=== PATIENT | male | born 1955 | race African-American/Black ===

== ENCOUNTER → 2018-05-18 | Outpatient (CLI) | payer OTHER, MEDICARE ==
--- NOTE | 2018-05-18 10:23 | CARD ---
MR#: [id number] Date of Study: 05/18/2018 Ordering Physician: LAZARA PATEL, Referring Physician: LAZARA PATEL, Tech: Simona Richard RDCS APPROVED REPORT EXAM: Two-dimensional and M-mode echocardiogram with Doppler and color Doppler. Other Information Quality : Good Rhythm : Atrial Fibrillation/Flutter INDICATION Murmur RISK FACTORS Obesity 2D DIMENSIONS RVDd2.8 (2.9-3.5cm)Left Atrium(2D)4.0 (1.6-4.0cm) IVSd1.2 (0.7-1.1cm)Aortic Root(2D)3.1 (2.0-3.7cm) LVDd4.8 (3.9-5.9cm)LVOT Diameter2.1 (1.8-2.4cm) PWd1.5 (0.7-1.1cm)LVDs3.5 (2.5-4.0cm) FS (%) 27.5 %SV58.1 ml LVEF(%)53.3 (>50%) Aortic Valve AoV Peak Jaiden.189.3cm/sAoV VTI34.0cm AO Peak GR.14.3mmHgLVOT Peak Jaiden.117.2cm/s AO Mean GR.9mmHgAVA (VMAX)2.23cm2 PEDRITO (VTI)2.50cm2 Mitral Valve MV E Iurwebvc900.1cm/sMV DECEL WTYE266ph MV A Velocity0.2cm/sE/A Iirzk845.5 Pulmonary Vein S1 Uzmxmckz67.5cm/sD2 Vuztvids37.7cm/s LEFT VENTRICLE The left ventricle is normal size. There is mild concentric left ventricular hypertrophy. Left ventri sammy systolic function is normal. The Ejection Fraction is 55-60%. There is normal LV segmental wall m otion. RIGHT VENTRICLE The right ventricle is normal size. The right ventricular systolic function is normal. ATRIA The left atrium is mildly dilated. The right atrium is mildly dilated. The interatrial septum is inta ct with no evidence for an atrial septal defect or patent foramen ovale as noted on 2-D or Doppler im aging. AORTIC VALVE The aortic valve is moderately thickened but opens well. Doppler and Color Flow revealed trace aortic regurgitation. Calculated aortic valve area is 2.5 cm2 with maximum pressure gradient of 14 mmHg and mean pressure gradient of 9 mmHg. MITRAL VALVE The mitral valve is calcified but opens well. There is no evidence of mitral valve prolapse. There is no mitral valve stenosis. Doppler and Color-flow revealed trace mitral regurgitation. TRICUSPID VALVE The tricuspid valve is normal in structure and function. Doppler and Color Flow revealed no tricuspid valve regurgitation noted. There is no tricuspid valve stenosis. PULMONIC VALVE The pulmonic valve is not well visualized. Doppler and Color Flow revealed trace to mild pulmonic michelle vular regurgitation. There is no pulmonic valvular stenosis. GREAT VESSELS The aortic root is normal in size. The ascending aorta is normal in size. The IVC is normal in size a nd collapses >50% with inspiration. PERICARDIAL EFFUSION There is no evidence of significant pericardial effusion. Critical Notification Critical Value: No <Conclusion> Left ventricle systolic function is normal. The Ejection Fraction is 55-60%. There is normal LV segmental wall motion. Doppler and Color-flow revealed trace mitral regurgitation. There is no evidence of significant pericardial effusion. Signed by : Yinka Haile, Electronically Approved : 05/18/2018 10:22:56
== END | disposition home or self-care (01) ==
LOC: ECHO 08:58
PROVIDERS: ATTEND Internal Medicine Cardiovascular Disease
DX: R01.1 Cardiac murmur, unspecified (principal); I51.7 Cardiomegaly; E66.9 Obesity, unspecified
CPT/HCPCS: 93306

== ENCOUNTER → 2018-08-31 | Outpatient (CLI) | payer OTHER, MEDICARE ==
--- NOTE | 2018-08-31 11:39 | RAD ---
Examination: CT chest without contrast HISTORY: History of cough COMPARISON: None available Technique: Axial CT images of the chest were performed without contrast. Coronal and sagittal reformats are performed Exposure: One or more of the following individualized dose reduction techniques were utilized for this examination: 1. Automated exposure control 2. Adjustment of the mA and/or kV according to patient size 3. Use of iterative reconstruction technique FINDINGS: The central airways are patent. Mild cardiomegaly. Coronary artery calcifications identified. Moderate aortic atherosclerosis. No radiologically significant mediastinal lymphadenopathy is identified. Linear airspace opacity identified in the right lower lobe lung likely atelectasis or infiltrate. Calcified granuloma identified in the right lower lobe of the lung. Minimal atelectasis left lung base. There is a 4 mm nodule identified in the right middle lobe of the lung. The visualized noncontrasted liver, spleen grossly appears unremarkable. Mild prominent adrenal glands. Mild degenerative changes thoracic spine. IMPRESSION: 1. Mild linear right lung base airspace opacities likely atelectasis or infiltrate. Minimal left lung base linear atelectasis. 2. A 4 mm nodule identified in the right middle lobe of the lung. Follow-up per Fleischner Society guidelines. Follow-up CT in 6-12 months. 3. . Coronary artery calcifications. 4. Mild prominent appearing left adrenal gland, nonspecific. Electronically signed by: Al Tabares MD (08/31/2018 11:35 AM) [id number]
== END | disposition home or self-care (01) ==
LOC: CT 10:11
PROVIDERS: ATTEND Family Medicine
DX: J98.11 Atelectasis (principal); I25.10 Atherosclerotic heart disease of native coronary artery without angina pectoris; R91.1 Solitary pulmonary nodule
CPT/HCPCS: 71250

== ENCOUNTER 2019-05-25 12:02 | Day surgery (SDC) | payer OTHER, MEDICARE ==
[~2019-05-25 12:02] MED LIST: APIX5TAB PO; BENZOCAINE ONE 20% MUCOSAL SPRAY. MM; BUDE10.2 IH; ERGO500027 PO; FLEC100T PO; GABA300C18 PO; GLIP2.5T4 PO; HYDROmorphone 2 MG/ML VIAL IV PRN; IV RINGERS,LACTATED 1000ML 1,000 ML IV SCH; LIDOCAINE 1% PF 2 ML VIAL. ID PRN; LIDOCAINE 2% TOPICAL JELLY 5GM TUBE. TP ONE; LIDOCAINE 2% VISCOUS 15 ML SOLUTION. SWSW ONE; LISI1TAB20 PO; METF500T16 PO; METO-239 PO; MORPHINE SULFATE 2 MG/ML VIAL. IV PRN; OXYC1TAB22 PO; PROCHLORPERAZINE 10 MG/2 ML VIAL. IV PRN; fentaNYL PF VIAL 100 MCG/2 ML VIAL IV PRN
--- NOTE | 2019-05-25 12:43 | EKG ---
[facility] [address] [place] [address] Test Date: 2019-05-25 Test Time: 12:45:47 Pat Name: ASHLEY FERNANDEZ Department: Room: Gender: M Case Hardener: GARETH : 1955 Requested By: LAZARA PATEL Order Number: [id number] Reading MD: Measurements Intervals [place] Rate: 68 P: 90 NC: 134 QRS: -62 QRSD: 132 T: 52 QT: 420 QTc: 452 Interpretive Statements SINUS RHYTHM ABNORMAL LEFT AXIS DEVIATION LEFT ANTERIOR FASCICULAR BLOCK NON SPECIFIC INTRAVENTRICULAR BLOCK ABNORMAL ECG RI6.01 No previous ECG available for comparison
[2019-05-25] MEDS ORDERED: INSULIN LISPRO 100 UNIT/ML 3ML VIAL for OP,RR ONLY. SQ PRN (13:00)
[2019-05-25] MEDS ORDERED: IV NORMAL SALINE 1000ML BAG 1,000 ML IV SCH (13:15)
[2019-05-25] MEDS ORDERED: PROPOFOL 40 ML IV ONE (13:19)
[2019-05-25 14:00] LABS: HEMATOCRIT 43.5 % (39.0-53.0); HEMOGLOBIN 14.3 g/dL (13.0-17.5); RED BLOOD COUNT 5.36 x10^6/uL (4.30-5.70); RED CELL DISTRIBUTION WIDTH 15.8 % (11.5-14.5); WHITE BLOOD COUNT 9.6 x10^3/uL (4.0-11.0)
[2019-05-25 14:20] VITALS: BP 134/106
[2019-05-25 14:27] LABS: CALCIUM 9.3 mg/dL (8.5-10.1); CREATININE 1.1 mg/dL (0.7-1.3); GFR 81.3; POTASSIUM 3.9 mmol/L (3.5-5.1)
--- NOTE | 2019-05-25 16:54 | CARD ---
MR#: [id number] Date of Study: 05/25/2019 Ordering Physician: JORDON LIU, Referring Physician: JORDON LIU Tech: Lesa Mahoney RDCS APPROVED REPORT EXAM: Two-dimensional and M-mode echocardiogram with Doppler and color Doppler. INDICATION Atrial Fibrillation Reason For Test : Rule out Intracardiac Thrombus. PROCEDURE After obtaining informed consent, patient underwent transesophageal echo in the PACU. Type of Sedation : General Anesthesia Sedation was administered by General Anesthesia. Sedation was achieved with Propofol 330mg intravenously. Transesophageal probe was inserted and advanced into esophagus by Jordon Liu MD. The FLORENTIN was performed without complications. Throughout the procedure, the blood pressure, pulse oximetry, cardiac rhythm, and rate were monitored . LEFT VENTRICLE The left ventricle is normal size. There is borderline to mild concentric left ventricular hypertroph y. The left ventricular systolic function is normal and the ejection fraction is within normal range. The Ejection Fraction is 55-60%. There is normal LV segmental wall motion. No left ventricle thrombu s noted on this study. RIGHT VENTRICLE The right ventricle is normal size. There is normal right ventricular wall thickness. The right ventr icular systolic function is normal. ATRIA The left atrium is mildly dilated. The right atrium is mildly dilated. The interatrial septum is inta ct with no evidence for an atrial septal defect or patent foramen ovale as noted on 2-D or Doppler im aging. There is no thrombus noted in the left atrial appendage. AORTIC VALVE The aortic valve is mildly calcified. The aortic valve is trileaflet. Doppler and Color Flow revealed no significant aortic regurgitation. There is no significant aortic valvular stenosis. There is no a ortic valvular vegetation. MITRAL VALVE The mitral valve is thickened but opens well. There is no evidence of mitral valve prolapse. There is no mitral valve stenosis. Doppler and Color-flow revealed trace to mild mitral regurgitation. TRICUSPID VALVE The tricuspid valve is normal in structure and function. Doppler and Color Flow revealed trace tricus pid regurgitation. There is no tricuspid valve prolapse or vegetation. There is no tricuspid valve st enosis. PULMONIC VALVE The pulmonary valve is normal in structure and function. Doppler and Color Flow revealed no pulmonic valvular regurgitation. There is no pulmonic valvular stenosis. GREAT VESSELS The aortic root is normal in size. The ascending aorta is normal in size. Critical Notification Critical Value: No <Conclusion> The left ventricle is normal size. The left ventricular systolic function is normal and the ejection fraction is within normal range. The Ejection Fraction is 55-60%. There is borderline to mild concentric left ventricular hypertrophy. The interatrial septum is intact with no evidence for an atrial septal defect or patent foramen ovale as noted on 2-D or Doppler imaging. There is no thrombus noted in the left atrial appendage. Doppler and Color Flow revealed no significant aortic regurgitation. There is no significant aortic valvular stenosis. Doppler and Color-flow revealed trace to mild mitral regurgitation. Doppler and Color Flow revealed trace tricuspid regurgitation. Signed by : Jordon Liu MD Electronically Approved : 05/25/2019 16:54:09
== END 2019-05-25 14:35 | disposition home or self-care (01) ==
LOC: SURG 12:02
PROVIDERS: ATTEND Internal Medicine Cardiovascular Disease
DX: I08.1 Rheumatic disorders of both mitral and tricuspid valves (principal); I48.0 Paroxysmal atrial fibrillation; I10 Essential (primary) hypertension; E78.5 Hyperlipidemia, unspecified; E11.9 Type 2 diabetes mellitus without complications; Z79.899 Other long term (current) drug therapy; Z98.890 Other specified postprocedural states; Z96.659 Presence of unspecified artificial knee joint; Z88.1 Allergy status to other antibiotic agents
CPT/HCPCS: 36415; 80048; 85027; 93005; 93312; 93325; J2704

== ENCOUNTER → 2019-10-03 | Outpatient (CLI) | payer OTHER, MEDICARE ==
[~2019-10-03] MED LIST changes: -BENZOCAINE ONE 20% MUCOSAL SPRAY. MM; -HYDROmorphone 2 MG/ML VIAL IV PRN; -IV RINGERS,LACTATED 1000ML 1,000 ML IV SCH; -LIDOCAINE 1% PF 2 ML VIAL. ID PRN; -LIDOCAINE 2% TOPICAL JELLY 5GM TUBE. TP ONE; -LIDOCAINE 2% VISCOUS 15 ML SOLUTION. SWSW ONE; -MORPHINE SULFATE 2 MG/ML VIAL. IV PRN; -PROCHLORPERAZINE 10 MG/2 ML VIAL. IV PRN; -fentaNYL PF VIAL 100 MCG/2 ML VIAL IV PRN
--- NOTE | 2019-10-03 13:29 | RAD ---
CT of the chest without contrast 10/03/2019 INDICATION: Lung nodule COMPARISON STUDY: CT without contrast August 31, 2018 TECHNIQUE: Multidetector CT imaging of the chest was performed without contrast FINDINGS: Heart size is normal. No pericardial effusion is identified. No pathologically enlarged mediastinal adenopathy is seen. Dense coronary calcification is noted. Aortic arch vessel calcification also seen. Findings are unchanged. There is no pneumothorax, pleural effusion, or acute focal consolidative infiltrate identified. There is a calcified granuloma noted in the right lower lobe. Approximately 3-4 mm subpleural nodular opacity in the right middle lobe is mildly less prominent in the interim. Scattered 1 to 2 mm subpleural opacities are seen throughout the bilateral lungs. The appearance is stable from prior study Limited visualization of the upper abdomen demonstrates no acute abnormality. Small hypodensity in the left liver is stable, likely benign. Superior mesenteric artery noted. Mild fullness of the adrenal glands unchanged. IMPRESSION: 1. Stable to slightly smaller approximately 3 to 4 mm nodule right middle lobe. Scattered 1 to 2 mm subpleural nodular opacities are similar. No new or growing lung nodules are identified. Recommend CT chest in one year to ensure two-year stability. 2. No other acute cardiopulmonary process. CT DOSING PQRS STATEMENT: One or more of the following individualized dose reduction techniques were utilized for this examination: 1. Automated exposure control 2. Adjustment of the mA and/or kV according to patient size 3. Use of iterative reconstruction technique Electronically signed by: Walker Kumar MD (10/03/2019 1:26 PM) [facility]
== END | disposition home or self-care (01) ==
LOC: CT 09:51
PROVIDERS: ATTEND Internal Medicine Pulmonary Disease
DX: R91.1 Solitary pulmonary nodule (principal); I25.10 Atherosclerotic heart disease of native coronary artery without angina pectoris
CPT/HCPCS: 71250

== ENCOUNTER → 2020-11-08 | Outpatient (CLI) | payer OTHER, MEDICARE ==
--- NOTE | 2020-11-08 16:23 | RAD ---
MR#: [id number] Date of Study: 11/08/2020 Ordering Physician: LAZARA PATEL, Referring Physician: LAZARA PATEL, Tech: APPROVED REPORT Patient Location : OUT-PATIENT Indications Lower Extremity Edema : Findings Grayscale images of the bilateral saphenofemoral junctions are grossly unremarkable. The right great saphenous vein measures 5.6 mm and the left great saphenous vein measures 5.3 mm. The bilateral gre ater saphenous veins did not show any evidence of reflux. The bilateral lesser saphenous veins also did not show any evidence of reflux. Critical Notification Critical Value: No <Conclusion> 1. No evidence of reflux in the bilateral greater and lesser saphenous veins Signed by : Derrick Pena, Electronically Approved : 11/08/2020 16:23:30
--- NOTE | 2020-11-08 16:25 | RAD ---
MR#: [id number] Date of Study: 11/08/2020 Ordering Physician: LAZARA PATEL, Referring Physician: LAZARA PATEL, Tech: APPROVED REPORT Bilateral Lower Extremity Venous Study for DVT Patient Location: OUT-PATIENT Indications Lower Extremity Edema: Vein Imaging (Right) CFV (R): Compressible SFJ (R): Compressible FEM (R): Compressible POP (R): Compressible DFV (R): Compressible PTV (R): Compressible GSV (R): Compressible SSV (R): Compressible Peroneals (R): Compressible Vein Imaging (Left) CFV (L): Compressible SFJ (L): Compressible FEM (L): Compressible POP (L): Compressible DFV (L): Compressible PTV (L): Compressible GSV (L): Compressible SSV (L): Compressible Findings The bilateral lower extremity deep veins were evaluated for thrombus with color Doppler, spectral and grayscale images. On the right the grayscale images of the common femoral, superficial femoral and popliteal veins do n ot demonstrate any evidence of thrombus and these veins appear to be compressible. The below-knee vei ns were not well visualized but grossly appear to be compressible. Spectral imaging and color Doppler do not reveal any evidence of obstruction to flow with normal respirophasic variation above the knee . Below the knee there is spontaneous flow noted. On the left, the grayscale images of the common femoral, superficial femoral and popliteal veins do n ot demonstrate any evidence of thrombus and these veins appear to be compressible. The below-knee vei ns again were not well visualized but grossly appear to be compressible. Spectral imaging and color D oppler do not reveal any evidence of obstruction to flow with normal respirophasic variation above th e knee. The below-knee veins demonstrate spontaneous flow. Critical Notification Critical Value: No <Conclusion> 1. Negative for DVT in the bilateral lower extremities 2. Technically difficult study Signed by : Derrick Pena, Electronically Approved : 11/08/2020 16:25:19
--- NOTE | 2020-11-08 16:28 | CARD ---
MR#: [id number] Date of Study: 11/08/2020 Ordering Physician: LAZARA PATEL, Referring Physician: LAZARA PATEL, Tech: Simona Richard RUST APPROVED REPORT EXAM: Two-dimensional and M-mode echocardiogram with Doppler and color Doppler. Other Information Quality : Good Rhythm : TachycardiaTechnically limited study due to body habitus. INDICATION Murmur 2D DIMENSIONS RVDd3.0 (2.9-3.5cm)Left Atrium(2D)4.0 (1.6-4.0cm) IVSd1.7 (0.7-1.1cm)Aortic Root(2D)3.2 (2.0-3.7cm) LVDd4.4 (3.9-5.9cm)LVOT Diameter2.2 (1.8-2.4cm) PWd1.4 (0.7-1.1cm)LVDs3.6 (2.5-4.0cm) FS (%) 18.1 %SV33.5 ml LVEF(%)37.7 (>50%) Aortic Valve AoV Peak Jaiden.279.9cm/sAoV VTI46.6cm AO Peak GR.31.3mmHgLVOT Peak Jaiden.104.2cm/s AO Mean GR.21mmHgAVA (VMAX)1.35cm2 PEDRITO (VTI)1.20cm2 Tricuspid Valve TR P. Kljnoswz492lm/sRAP [id number] TR Peak Gr.87axRuXOIE09cxBa LEFT VENTRICLE The left ventricle is normal size. There is mild to moderate concentric left ventricular hypertrophy. Left ventricle systolic function is moderately impaired. The Ejection Fraction is 40%. There is mode rate global hypokinesis of the left ventricle. Transmitral Doppler flow pattern is Grade II-pseudonor mal filling dynamics. RIGHT VENTRICLE The right ventricle is normal size. The right ventricular systolic function is normal. ATRIA The left atrium is mildly dilated. The right atrium size is normal. The interatrial septum is intact with no evidence for an atrial septal defect or patent foramen ovale as noted on 2-D or Doppler imagi ng. AORTIC VALVE The aortic valve is calcified and displays decreased opening. Doppler and Color Flow revealed no sign ificant aortic regurgitation. Calculated aortic valve area is 1.2 cm2 with maximum pressure gradient of 31 mmHg and mean pressure gradient of 21 mmHg. Doppler and color-flow analysis revealed mild aorti c stenosis. MITRAL VALVE The mitral valve is calcified but opens well. Mitral annular calcification is mild. There is no evide nce of mitral valve prolapse. There is no mitral valve stenosis. Doppler and Color-flow revealed trac e to mild mitral regurgitation. TRICUSPID VALVE The tricuspid valve is normal in structure and function. Doppler and Color Flow revealed physiologica l tricuspid regurgitation. There is mild pulmonary hypertension. The PA pressure was estimated at 40 mmHg. There is no tricuspid valve stenosis. PULMONIC VALVE The pulmonic valve is not well visualized. Doppler and Color Flow revealed no pulmonic valvular regur gitation. There is no pulmonic valvular stenosis. GREAT VESSELS The aortic root is normal in size. The ascending aorta is normal in size. The IVC was not visualized. PERICARDIAL EFFUSION There is no evidence of significant pericardial effusion. Critical Notification Critical Value: No <Conclusion> Left ventricle systolic function is moderately impaired. The Ejection Fraction is 40%. (Likely due to underlying arrhythmia - possible atrial flutter) There is moderate global hypokinesis of the left ventricle. The aortic valve is calcified and displays decreased opening. Calculated aortic valve area is 1.2 cm2 with maximum pressure gradient of 31 mmHg and mean pressure g radient of 21 mmHg. Doppler and color-flow analysis revealed mild aortic stenosis. Doppler and Color Flow revealed physiological tricuspid regurgitation. There is mild pulmonary hypert ension. The PA pressure was estimated at 40 mmHg. Signed by : Derrick Pena, Electronically Approved : 11/08/2020 16:27:52
== END ==
LOC: ECHO 10:52
PROVIDERS: ATTEND Internal Medicine Cardiovascular Disease
DX: I08.0 Rheumatic disorders of both mitral and aortic valves (principal); I27.20 Pulmonary hypertension, unspecified; I82.493 Acute embolism and thrombosis of other specified deep vein of lower extremity, bilateral; R60.0 Localized edema; M79.89 Other specified soft tissue disorders
CPT/HCPCS: 93306; 93970

== ENCOUNTER 2021-11-08 08:33 | Outpatient (CLI) | payer OTHER, MEDICARE ==
[~2021-11-08] VITALS: Ht 182.9 cm; Wt 148.2 kg
[2021-11-08] VITALS (10 sets, daily range): BP systolic 116–145; BP diastolic 60–74
[~2021-11-08 08:33] MED LIST changes: -LISI1TAB20 PO; +LISI1TAB39 PO
[2021-11-08] MEDS ORDERED: ALBU2.5V8 INH (09:12)
[2021-11-08] MEDS ORDERED: SIMV20TA18 PO (09:12)
[2021-11-08] MEDS ORDERED: LISI1TAB37 PO (09:12)
[2021-11-08] MEDS ORDERED: GLIP1TAB4 PO (09:12)
[2021-11-08] MEDS ORDERED: EMPA25TA3 PO (09:12)
[2021-11-08] MEDS ORDERED: FURO40TA4 PO (09:12)
[2021-11-08] MEDS ORDERED: vitamin d3 PO (09:12)
[2021-11-08] MEDS ORDERED: POTA10TA12 PO (09:12)
[2021-11-08 09:22] LABS: HEMATOCRIT 39.6 % (39.0-53.0); HEMOGLOBIN 12.2 g/dL (13.0-17.5); RED BLOOD COUNT 4.95 x10^6/uL (4.30-5.70); RED CELL DISTRIBUTION WIDTH 16.3 % (11.5-14.5); WHITE BLOOD COUNT 11.3 x10^3/uL (4.0-11.0)
[2021-11-08 09:36] LABS: PROTHROMBIN TIME PATIENT 13.1 SEC (11.7-14.0)
[2021-11-08 10:21] LABS: CALCIUM 9.4 mg/dL (8.5-10.1); CREATININE 1.4 mg/dL (0.7-1.3); POTASSIUM 4.5 mmol/L (3.5-5.1)
[2021-11-08] MEDS ORDERED: LIDOCAINE 1% PF 2 ML VIAL. ONE (10:42)
[2021-11-08] MEDS ORDERED: MIDAZOLAM HCL/PF 5 MG/5 ML VIAL. ONE (10:45)
[2021-11-08] MEDS ORDERED: HEPARIN for IV BOLUS 10,000 UNIT/10 ML VIAL. ONE ×2 (10:46→11:58)
[2021-11-08] MEDS ORDERED: fentaNYL PF VIAL 100 MCG/2 ML VIAL ONE ×2 (10:46→12:49)
[2021-11-08] MEDS ORDERED: VERAPAMIL 5 MG/2 ML VIAL. ONE (10:46)
[2021-11-08] MEDS ORDERED: IODIXANOL 320 200 ML in NS 200 ML IART ONE (11:00)
[2021-11-08] MEDS ORDERED: NITROGLYCERIN 200 MCG/2 ML SYRINGE FOR CATH/VASC LAB. ONE (11:26)
[2021-11-08] MEDS ORDERED: diphenhydrAMINE 50 MG/ML VIAL ONE (11:26)
[2021-11-08] MEDS ORDERED: MIDAZOLAM HCL/PF 5 MG/5 ML VIAL. IV ONE (11:30)
[2021-11-08] MEDS ORDERED: NITROGLYCERIN 200 MCG/2 ML SYRINGE FOR CATH/VASC LAB. IART ONE ×2 (11:30→12:45)
[2021-11-08] MEDS ORDERED: fentaNYL PF VIAL 100 MCG/2 ML VIAL IV ONE (11:30)
[2021-11-08] MEDS ORDERED: VERAPAMIL 5 MG/2 ML VIAL. IART ONE (11:30)
[2021-11-08] MEDS ORDERED: LIDOCAINE 1% Multi-Dose 20 ML VIAL. INJ ONE (11:30)
[2021-11-08] MEDS ORDERED: HEPARIN for IV BOLUS 10,000 UNIT/10 ML VIAL. IART ONE (11:30)
[2021-11-08] MEDS ORDERED: diphenhydrAMINE 50 MG/ML VIAL IVP ONE (11:45)
[2021-11-08] MEDS ORDERED: NITROGLYCERIN 4 MG/20 ML SYRINGE for CATH LAB. ONE ×2 (11:56→12:00)
[2021-11-08] MEDS ORDERED: HEPARIN for IV BOLUS 10,000 UNIT/10 ML VIAL. IV ONE (12:15)
--- NOTE | 2021-11-08 16:00 | NUR ---
Discharge Note: ASHLEY FERNANDEZ Discharge instructions and discharge home medications reviewed with Patient and a copy given. All questions have been answered and understanding verbalized. Dressing to R wrist and L groin, dry and intact. The following instructions and handouts were given: PVD, groin site carre, radial site care, sedation, angioseal information Discontinued lines and drains: Peripheral IV intact. Patient discharged to Home or Self Care with Spouse via Wheelchair BENEDICTO MIDDLETON
--- NOTE | 2021-11-08 17:51 | CARD ---
MR#: [id number] Date of Study: 11/08/2021 Ordering Physician: IVETTE HAILE, Referring Physician: IVETTE HAILE, Tech: RT Zackery(R) APPROVED REPORT Patient StatusOUT-PATIENT Link Wire Fabric Machine Operator: RT Zackery(R) Procedure(s) performed: 1. Aortogram with bilateral lower extremity runoff 2. Successful complex orbital atherectomy/VESSEL LINER to the right superficial femoral and popliteal arterie s FL TIME: 43.8 MIN DOSE: 378 GYCM2 CONTRAST: 150 ML MODERATE SEDATION:143 MINS INDICATION FOR PROCEDURE The indication(s) include : Peripheral artery disease with claudication and nonhealing wound. CASE TECHNIQUE After explaining the risks, benefits, and alternative options, informed consent was obtained from the patient. IV conscious sedation was used throughout procedure with appropriate monitoring and was per formed in the presence of a registered nurse who was an independent trained observer other than the shane clark performing the procedure. During this case, Fluoroscopy and low osmolar contrast were used f or imaging. Specimen(s) Removed: No Estimated Blood loss: 15 cc's. PROCEDURE NARRATIVE After explaining the risk, benefits and alternative options, informed consent was obtained for patien t. Patient was brought to the cardiac Tool Pusher and his right wrist was prepped and draped in the usu al fashion after confirming a positive modified Feliciano's test. Arterial access was obtained in the [facility] radial artery and a 6 Norwegian sheath was inserted. Attempts to advance a pigtail catheter beyond proximal subclavian artery were unsuccessful. 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 Hence patient was left groin was prepped and draped in the usual fashion. 20 cc of 2% lidocaine was infiltrated into the skin and subcutaneous tissues for local anesthesia. Arteria l access was obtained in the left common femoral artery and 5 Norwegian sheath was inserted. 5 Norwegian p igtail catheter was positioned in the descending aorta under fluoroscopic guidance and aortoiliac ang iography was performed. The aortic idalmis was crossed using 5 Norwegian crossover catheter was then exc hanged to a 4 Norwegian angled glide catheter and with the tip position in the right external iliac dominguez ry, selective right lower extremity angiography was performed. Contrast injections were performed th rough the sheath in the left groin for selective left lower extremity angiography. The following fin dings were noted: FINDINGS 1. No significant stenosis involving the distal descending aorta 2. No significant stenosis involving bilateral common and external iliac arteries 3. No significant stenosis involving bilateral common femoral arteries 4. The right superficial femoral artery showed heavily calcified 95% stenosis in the proximal segmen t. The left superficial femoral artery showed heavily calcified 99% stenosis involving the distal se gment. 5. The right popliteal artery showed heavily calcified 99% stenosis. The left popliteal artery did not show any significant stenosis. 6. The right anterior tibial artery showed short 100% occlusion in the proximal segment with bridgin g collaterals. The right posterior tibial artery showed 95% stenosis in the proximal segment. The r ight peroneal artery showed 100% shot occlusion of the proximal segment with bridging collaterals. T he left lower extremity showed three-vessel runoff below the knee. INTERVENTION The sheath in the left groin was exchanged over a wire to a 6 Norwegian 45 cm destination sheath which w as then advanced and the tip was positioned in the right common femoral artery under fluoroscopy guid ance. The lesions in the proximal segment of right SFA and the right popliteal artery were crossed w ith a 0.014 inch command ES guidewire. Attempts to advance a Navicross microcatheter were unsuccessf ul across the SFA lesion secondary to heavy calcification. A 0.014 inch quick cross microcatheter wa s then advanced over the guidewire. The wire was then exchanged to a Viper wire. Initial attempts t o advance a CSI 1.5 diamondback orbital atherectomy catheter were unsuccessful due to heavy calcifica tion. After repeated attempts, we were able to advance it successfully and multiple orbital atherect kaur passes were performed within the proximal SFA and also the popliteal lesions. These lesions were then dilated with a 5.0 x 60 mm Mae [place] balloon. Follow-up angiography showed resolution of t he lesions with approximately 30% residual secondary to heavy eccentric calcification. Due to the co ntrast load and fluoroscopy time used, we decided to intervene on the right AT and PT vessels in 2 to 3 weeks. Patient tolerated the procedure well. Hemostasis was achieved using Angio-Seal. There we re no immediate complications. Conclusion 1. Severe bilateral lower extremity peripheral artery disease as described above 2. Successful complex orbital atherectomy/VESSEL LINER to right superficial femoral and right popliteal arter ies Recommendations Plan for staged VESSEL LINER to right anterior tibial and posterior tibial arteries in 2 weeks followed by ath erectomy/VESSEL LINER to left SFA in a month. Vascular risk factor modification including regular exercise regimen Signed by : Ivette Haile, Electronically Approved : 11/08/2021 17:50:47
== END 2021-11-08 16:00 | disposition home or self-care (01) ==
LOC: CCL 08:33
PROVIDERS: ATTEND Internal Medicine Cardiovascular Disease
DX: I73.9 Peripheral vascular disease, unspecified (principal); I11.0 Hypertensive heart disease with heart failure; I50.9 Heart failure, unspecified; E78.00 Pure hypercholesterolemia, unspecified; I48.91 Unspecified atrial fibrillation; E11.9 Type 2 diabetes mellitus without complications; E66.9 Obesity, unspecified; M19.90 Unspecified osteoarthritis, unspecified site; F41.9 Anxiety disorder, unspecified; Z79.899 Other long term (current) drug therapy; Z87.891 Personal history of nicotine dependence; Z98.890 Other specified postprocedural states; Z88.1 Allergy status to other antibiotic agents
CPT/HCPCS: 36415; 37225; 75625; 75716; 80048; 85027; 85610; 99152; 99153; C1724; C1725; C1760; C1769; C1887; C1894; J1200; J1644; J2250; J3010; J3490; J7030; J7050; Q9967; G0269